=== PATIENT | male | born 1945 | race Two or more races ===

== ENCOUNTER 2019-11-18 10:38 | Outpatient (CLI) | payer MEDICARE ==
[2019-11-18 11:25] LABS: BASOPHILS % (AUTO) 0.6 % (0.0-2.0); EOSINOPHILS % (AUTO) 0.3 % (0.0-6.0); HEMATOCRIT 41 % (39-51); LYMPHOCYTES # (AUTO) 1.8 /CMM (0.8-4.8); LYMPHOCYTES % (AUTO) 47.3 % (20.0-44.0); MEAN CORPUSCULAR HGB CONC 34 g/dl (31.0-36.0); MEAN CORPUSCULAR VOLUME 91 fL (80-96); MONOCYTES # (AUTO) 0.3 /CMM (0.1-1.30); MONOCYTES % (AUTO) 7.4 % (2.0-12.0); NEUTROPHILS # (AUTO) 1.6 /CMM (1.8-8.9); NEUTROPHILS % (AUTO) 44.4 % (43.0-81.0); PLATELET COUNT (AUTO) 211 /CMM (150-450); RED BLOOD CELL COUNT(AUTO) 4.53 MIL/uL (4.5-6.0); WHITE BLOOD COUNT (AUTO) 3.7 K/uL (4.3-11.0)
[2019-11-18 11:48] LABS: CALCIUM, SERUM 10.5 mg/dL (8.5-10.1); POTASSIUM 3.8 mmol/L (3.5-5.1)
[2019-11-18 11:54] LABS: ALBUMIN 3.8 g/dL (3.4-5.0); BILIRUBIN,TOTAL 0.6 mg/dL (0.2-1.0)
[2019-11-18 12:00] LABS: THYROID STIMULATING HORMONE 1.568 uIU/mL (0.358-3.74)
== END 2019-11-18 23:59 | disposition home or self-care (01) ==
LOC: LAB 10:38
PROVIDERS: ATTEND Internal Medicine Interventional Cardiology
DX: I10 Essential (primary) hypertension (principal); E11.9 Type 2 diabetes mellitus without complications; E78.5 Hyperlipidemia, unspecified; R53.83 Other fatigue; R07.9 Chest pain, unspecified
CPT/HCPCS: 36415; 80053-TC; 80061-TC; 84443-TC; 84484-TC; 85025-TC

== ENCOUNTER 2019-11-22 05:31 | Day surgery (SDC) | payer MEDICARE, OTHER ==
[2019-11-22] VITALS (9 sets, daily range): BP systolic 103–143; BP diastolic 62–87
[~2019-11-22] VITALS: Ht 172.7 cm; Wt 83.9 kg
[2019-11-22 06:00] LABS: BASOPHILS # (AUTO) 0.1 /CMM (0.0-0.2); EOSINOPHILS % (AUTO) 1.2 % (0.0-6.0); HEMATOCRIT 40 % (39-51); LYMPHOCYTES # (AUTO) 2.9 /CMM (0.8-4.8); LYMPHOCYTES % (AUTO) 51.7 % (20.0-44.0); MEAN CORPUSCULAR HGB CONC 35 g/dl (31.0-36.0); MEAN CORPUSCULAR VOLUME 91 fL (80-96); MONOCYTES # (AUTO) 0.5 /CMM (0.1-1.30); NEUTROPHILS # (AUTO) 2.2 /CMM (1.8-8.9); NEUTROPHILS % (AUTO) 38.1 % (43.0-81.0); PLATELET COUNT (AUTO) 214 /CMM (150-450); RED BLOOD CELL COUNT(AUTO) 4.45 MIL/uL (4.5-6.0); WHITE BLOOD COUNT (AUTO) 5.7 K/uL (4.3-11.0)
[2019-11-22 06:10] LABS: CREATININE 0.9 mg/dL (0.6-1.3); POTASSIUM 3.8 mmol/L (3.5-5.1)
[2019-11-22 06:15] LABS: ALBUMIN 3.6 g/dL (3.4-5.0); BILIRUBIN,TOTAL 0.8 mg/dL (0.2-1.0); TOTAL PROTEIN, SERUM 7.8 g/dL (6.4-8.2)
[2019-11-22] MEDS ORDERED: IODIXANOL 150 ML IV ONE (06:31)
[2019-11-22] MEDS ORDERED: HEPARIN SODIUM, PORCINE 1,000 UNIT/ML VIAL ONE (06:33)
[2019-11-22] MEDS ORDERED: VERAPAMIL HCL IV 5 MG/2 ML VIAL ONE (06:33)
[2019-11-22] MEDS ORDERED: IV NS 0.9% 1,000 ML ONE (06:36)
[2019-11-22] MEDS ORDERED: IV SET PRIMARY PUMP SET 1 EA INFUS.SET MC ONE (06:36)
[2019-11-22] MEDS ORDERED: NITROGLYCERIN ICAR 1,000 MCG/10 ML VIAL ICAR ONE (06:45)
[2019-11-22] MEDS ORDERED: LIDOCAINE HCL/PF 1% 30 ML SDV ONE (06:46)
[2019-11-22] MEDS ORDERED: FENTANYL PF 100MCG/2ML AMPUL ONE (07:03)
[2019-11-22] MEDS ORDERED: MIDAZOLAM HCL 2 MG/2ML VIAL ONE (07:03)
[2019-11-22] MEDS ORDERED: ATORVASTATIN 40 MG TABLET PO ONE ×2 (08:30→09:30)
[2019-11-22] MEDS ORDERED: CARVEDILOL 6.25 MG TABLET PO ONE ×2 (08:30→09:30)
[2019-11-22] MEDS ORDERED: ISOSORBIDE MONONITRATE (30MG) 30 MG TAB.SR.24H PO ONE ×2 (08:30→09:30)
[2019-11-22] MEDS ORDERED: ASPIRIN 325 MG TABLET PO ONE ×3 (08:30→10:00)
--- NOTE | 2019-11-22 08:30 | NUR ---
HR SPECIALIST RECEIVED PT FROM [facility] BY CAIN WITH MONITOR. REPORT RECEIVED FROM SHAB[facility] ABDI. PT AWAKE AND ALERT. FOLLOWING COMMANDS. TR BAND IN PLACE OVER RIGHT RADIAL ARTERY. NO BLEEDING SEEN. HOB 30 DEG. DENIES CHEST PAIN.
[2019-11-22] MEDS ORDERED: ASPI-1152 PO (09:17)
[2019-11-22] MEDS ORDERED: CARV6.252 PO (09:17)
[2019-11-22] MEDS ORDERED: ATOR40TA PO (09:17)
[2019-11-22] MEDS ORDERED: ISOS30TA6 PO (09:17)
[2019-11-22] MEDS ORDERED: GABA-534 PO (09:17)
[2019-11-22] MEDS ORDERED: LOSA25TA27 PO (09:17)
[2019-11-22] MEDS ORDERED: TAMS-12 PO (09:17)
[2019-11-22] MEDS ORDERED: ESOM40CA52 PO (09:17)
--- NOTE | 2019-11-22 10:00 | NUR ---
SHOE PARTS CASER STARTED DEFLATING TR BAND BY 3 ML. WILL DEFLATE EVERY 15 MINUTES ORDERED. NO BLEEDING SEEN.
--- NOTE | 2019-11-22 11:55 | NUR ---
SUPERVISOR WATER SOFTENER SERVICE TR BAND REMOVED. CLEAR DRESSING PLACED OVER SITE. DR YIP CAME IN AND SPOKE WITH PT AND SON. PT SCHEDULED FOR CABG AT [facility] TENTAT[facility] SCHEDULED FOR THURSDAY. DISCHARGE INSTRUCTIONS GIVEN, STRESSING NEED TO BE SEEN IN ER FOR FURTHER CHEST PAIN. WRITTEN DISCHARGE SUMMARY GIVEN. COPY SIGNED BY PT. ALL BELONGINGS TAKEN BY SON. PT TOOK DENTURES.
[2019-11-23] MEDS ORDERED: ASPIRIN 81 MG TAB.CHEW PO SCH (09:00)
== END 2019-11-22 16:00 | disposition home or self-care (01) ==
LOC: CATHLAB 05:31 → UNDOADMIN 08:51 → ICU 08:51 → UNDODISIN 12:02 → CATHLAB 16:00
PROVIDERS: ATTEND Internal Medicine Interventional Cardiology
DX: R07.9 Chest pain, unspecified (principal); I25.110 Atherosclerotic heart disease of native coronary artery with unstable angina pectoris; I10 Essential (primary) hypertension; Z79.82 Long term (current) use of aspirin; Z79.899 Other long term (current) drug therapy
CPT/HCPCS: 36415; 80053; 85025; 85610; 85730; 93458; 99152; 99153; J1644 ×2; J2250; J3010; J3490 ×2; Q9967; 93452; G0378

== ENCOUNTER 2021-05-09 09:56 | Outpatient (CLI) | payer MEDICARE, OTHER ==
[~2021-05-09 09:56] MED LIST: ASPI-1420 PO; ATOR40TA PO; CARV6.252 PO; ESOM40CA52 PO; GABA-534 PO; ISOS30TA86 PO; LOSA25TA27 PO; TAMS-12 PO
[2021-05-09 10:43] LABS: CALCIUM, SERUM 9.2 mg/dL (8.5-10.1); CREATININE 1.2 mg/dL (0.6-1.3); POTASSIUM 4.4 mmol/L (3.5-5.1)
[2021-05-09] MEDS ORDERED: IV NS 0.9% 250 ML IV ONE (11:20)
[2021-05-09] MEDS ORDERED: CT SWABBABLE VALVE TRANS SET 1 EA INFUS.SET MC ONE (11:20)
[2021-05-09] MEDS ORDERED: IOHEXOL-350 100 ML VIAL IV ONE (11:20)
== END 2021-05-09 23:59 | disposition home or self-care (01) ==
LOC: CT 09:56
PROVIDERS: ATTEND Internal Medicine Interventional Cardiology
DX: I65.23 Occlusion and stenosis of bilateral carotid arteries (principal); M47.812 Spondylosis without myelopathy or radiculopathy, cervical region; R94.4 Abnormal results of kidney function studies
CPT/HCPCS: 36415; 70498; 80048; J7050; Q9967